=== PATIENT | female | born 1985 | race Caucasian/White ===

== ENCOUNTER 2023-10-04 18:08 | Inpatient (IN) ==
[2023-10-04] MEDS ORDERED: Lidocaine 1% VIAL 10 MG/ML 30 ML VIAL INJ PRN (18:35)
[2023-10-04] MEDS: Dinoprostone 10 MG VAG.SUPP VAGINAL ONE (21:17)
[2023-10-05 09:40] LABS: Hematocrit 31.6 % (35-45); Hemoglobin 10.7 g/dL (11.5-14.3); Mean Corpuscular Hemoglobin 28.8 pg (27-33); Mean Corpuscular Hgb Conc 33.8 g/dL (31-36); Mean Corpuscular Volume 85.3 fL (80-97); Mean Platelet Volume 8.5 fL (7.5-11.2); Platelet Count 273 10^3/uL (150-450); Red Blood Count 3.71 10^6/uL (3.63-4.92); Red Cell Distribution Width 13.4 % (12-17)
[2023-10-05] MEDS: Buffered Lidocaine 1% SYRIN 1 ml INTRADERM ONE (09:49)
[2023-10-05 09:58] LABS: Albumin 3.3 g/dL (3.2-5.2); Albumin/Globulin Ratio 1.4 (1-3); Calcium 8.7 mg/dL (8.6-10.3); Creatinine, Serum 0.53 mg/dL (0.51-0.95); Globulin 2.3 g/dL (2-4); Potassium 3.8 mmol/L (3.5-5.0); Total Bilirubin 0.3 mg/dL (0.2-1.0); Total Protein 5.6 g/dL (6.4-8.9); eGFR CKD-EPI 121.3 (>60)
[2023-10-05] MEDS: miSOPROStol 100 mcg TAB PO ONE ×2 (10:04→14:16)
[2023-10-05] MEDS: Famotidine IV 10 MG/ML 2 ml VIAL (20 mg) IV SLOW PU SCH (10:06)
[2023-10-05 10:20] LABS: Urine Benzodiazepine Screen None Detected (None Detect); Urine Cannabinoids Screen None Detected (None Detect); Urine Opiates Screen None Detected (None Detect)
[2023-10-05 10:27] LABS: ABS Eosinophils 0.1 10^3/uL (0.0-0.5); ABS Lymphocytes 2.2 10^3/uL (1.0-4.8); ABS Monocytes 0.4 10^3/uL (0.0-0.9); ABS Neutrophils 8.3 10^3/uL (1.5-7.6); ABS Nucleated RBC 0.01 10^3/ul; Eosinophil % 0.9 %; Lymphocyte % 20.3 %; Nucleated Red Blood Cells % 0.1 %/100WBC (0.0-0.8); RBC Morphology Normal (Normal)
[2023-10-05] MEDS: Oxytocin in LR 20,000 MILLI.UNIT/1,000 ML BAG IV SCH (18:47)
[2023-10-05] MEDS: Lactated Ringers 1000 ml BAG 1,000 ML IV SCH (18:47)
[2023-10-05] MEDS: Prochlorperazine 5 mg/ml 2 ml VIAL (10 mg) IV PRN (23:25)
[2023-10-06 03:23] LABS: Urine Creatinine Concentration 69.05 mg/dL (20.00-320.00); Urine TP Creat Ratio 0.2 mg/mg
[2023-10-06] MEDS: Calcium Carb (TUMS) 500 mg CHEW TAB PO ONE (07:57)
[2023-10-06] MEDS: miSOPROStol 100 mcg TAB VAGINAL ONE ×2 (09:32→13:52)
[2023-10-06] MEDS ORDERED: Lidocaine 1.5% EPI 1:200,000 30 ML SDV ONE (20:31)
[2023-10-06] MEDS: OBEPIDURAL (200 ML) 200 ML EPIDURAL ONE (21:31)
[2023-10-06] MEDS ORDERED: Phenylephrine 40 mcg/mL 10mL (400mcg) SYRINGE IV PUSH PRN ×2 (21:51)
[2023-10-06] MEDS ORDERED: Lactated Ringers 1000 ml BAG 1,000 ML IV ONE (21:51)
[2023-10-06] MEDS ORDERED: Sodium Citrate/Citric Acid LIQ 15 ML UDC PO PRN (21:51)
[2023-10-06] MEDS: Lactated Ringers 1000 ml BAG 1,000 ML IV ONE (22:00)
[2023-10-06] MEDS ORDERED: Lactated Ringers 1000 ml BAG 1,000 ML IV SCH (22:00)
[2023-10-06 22:37] LABS: Urine Appearance Turbid; Urine Bilirubin Negative (Negative); Urine Blood Negative (Negative); Urine Color Light-Yellow; Urine Glucose Negative (Negative); Urine Ketones Negative (Negative); Urine Nitrite Negative (Negative); Urine Protein Trace (Negative); Urine Specific Gravity 1.015 (1.002-1.030); Urine Urobilinogen Negative (Negative)
[2023-10-06] MEDS: Ondansetron 4 mg VIAL 2 MG/ML 2 ml VIAL IV PRN (23:44)
[2023-10-07] MEDS ORDERED: Lidocaine 2% PF 5 ML VIAL ONE ×2 (01:17→04:32)
[2023-10-07] MEDS ORDERED: Bupivacaine 0.25% SDV PF 10 ML VIAL INJ ONE ×2 (01:17→04:32)
[2023-10-07] MEDS: OBEPIDURAL (200 ML) 200 ML EPIDURAL SCH (07:12)
[2023-10-07] MEDS: Oxytocin in LR 20,000 MILLI.UNIT/1,000 ML BAG IV ONE (07:24)
[2023-10-07] MEDS ORDERED: Oxytocin in LR 20,000 MILLI.UNIT/1,000 ML BAG IV SCH ×2 (07:25→12:00)
[2023-10-07] MEDS: Calcium Carb (TUMS) 500 mg CHEW TAB PO PRN (10:03)
[2023-10-07] MEDS: Methylergonovine 0.2 mg AMPULE 1 ml AMP IM ONE (11:31)
[2023-10-07] MEDS ORDERED: Glycerin ADULT 2.4 gm SUPP PR PRN (11:59)
[2023-10-07] MEDS: Methylergonovine 0.2 mg AMPULE 1 ml AMP ONE (14:11)
[2023-10-07] MEDS: Dibucaine 1% OINT 28.35 GM TUBE PR PRN (14:42)
[2023-10-07] MEDS: Witch Hazel PAD JAR TOPICAL PRN (14:42)
[2023-10-07] MEDS: Lactated Ringers 1000 ml BAG 1,000 ML IV SCH (14:43)
[2023-10-07] MEDS: Metoclopramide 5 MG/ML VIAL (10 mg) IV PRN (14:52)
[2023-10-08 06:44] LABS: ABS Basophils 0.1 10^3/uL (0.0-0.1); ABS Eosinophils 0.1 10^3/uL (0.0-0.5); ABS Lymphocytes 3.7 10^3/uL (1.0-4.8); ABS Monocytes 1.2 10^3/uL (0.0-0.9); ABS Neutrophils 9.3 10^3/uL (1.5-7.6); ABS Nucleated RBC 0.01 10^3/ul; Eosinophil % 0.7 %; Hemoglobin 8.3 g/dL (11.5-14.3); Lymphocyte % 25.6 %; Mean Corpuscular Hemoglobin 28.5 pg (27-33); Mean Corpuscular Hgb Conc 33.3 g/dL (31-36); Mean Corpuscular Volume 85.5 fL (80-97); Mean Platelet Volume 8.3 fL (7.5-11.2); Nucleated Red Blood Cells % 0.1 %/100WBC (0.0-0.8); Platelet Count 226 10^3/uL (150-450); Red Blood Count 2.92 10^6/uL (3.63-4.92); Red Cell Distribution Width 13.9 % (12-17); White Blood Count 14.3 10^3/uL (3.8-11.8)
[2023-10-08] MEDS: Polyethylene Glycol 3350 17 GM PACKET PO SCH (08:42)
[2023-10-08] MEDS: Iron Sucrose 200 MG in NS 0.9% 100 ml BAG 100 ML IVPB ONE (11:52)
[2023-10-09 17:22] VITALS: BP 128/71
== END 2023-10-09 17:45 | disposition home or self-care (01) | DRG 560 ==
LOC: MCHOBOUT 18:08 → MCHOB 18:23
PROVIDERS: ATTEND Advanced Practice Midwife